=== PATIENT | male | born 1955 | race Caucasian/White ===

== ENCOUNTER 2017-04-12 19:18 | Emergency (ER) | payer OTHER, MEDICARE ==
[~2017-04-12] VITALS: Ht 167.6 cm; Wt 74.0 kg
[2017-04-12 19:22] VITALS: Ht 167.6 cm; Wt 74.0 kg
[2017-04-12] MEDS ORDERED: CLOT30CR24 TOP (21:19)
[2017-04-12] MEDS ORDERED: FLUC150T17 PO (21:19)
[2017-04-12] MEDS ORDERED: METHYLPREDNISOLONE 125 MG INJ IM ONE (21:30)
--- NOTE | 2017-04-12 21:40 | ERD ---
ER Documentation Chief Complaint Chief Complaint scaterred body rashes x 1 month HPI 11-year-old male that presents to the ER for a rash that started 2 months ago. Rash is intermittent. Patient tried antibiotics and a steroid pack however it did not work. Rash is very itchy located on his chest below his breasts and around his neck and chest. Patient states that rash is very itchy, he has been taking Benadryl, however it is still itchy. She denies any pain he does not have any fevers or chills. No one else has this rash at home. He has not traveled anywhere. He has not seen a real estate broker associate. ROS 12 point review of systems was done, all negative except per HPI. Medications Home Meds Active Scripts Clotrimazole* (Clotrimazole* AF) 1% - 30 Gm Cream.gm., 1 APPLIC TOP BID for 7 Days, TUB Prov:CJ BLAKE 04/12/17 Fluconazole* (Diflucan*) 150 Mg Tablet, 150 MG PO ONCE, #1 TAB Prov:CJ BLAKE 04/12/17 Allergies Allergies: Coded Allergies: cephalexin (Verified Allergy, Unknown, 08/16/14) PMhx/Soc Medical and Surgical Hx: pt denies Surgical Hx Hx Miscellaneous Medical Probl: Yes (cholesterol) Hx Alcohol Use: Yes (SOMETIMES) Hx Substance Use: No Hx Tobacco Use: Yes Smoking Status: Current every day smoker Physical Exam Vitals Vital Signs Date Time Temp Pulse Resp B/P Pulse Ox O2 Delivery O2 Flow Rate FiO2 04/12/17 19:22 97.9 78 20 118/66 100 Physical Exam GENERAL: The patient is well developed and appropriate for usual state of health , in no apparent distress. HEENT: Atraumatic.. CHEST: Clear to auscultation bilaterally. There are no rales, wheezes or rhonchi. HEART: Regular rate and rhythm. No murmurs, clicks, rubs or gallops. NEURO: Alert and oriented. SKIN: beefy red rash below breasts and around neck and chest Results 24 hrs Current Medications Medications (Trade) Dose Ordered Sig/Laureano Route PRN Reason Start Time Stop Time Status Last Admin Dose Admin Methylprednisolone Sodium Succinate (Solu-Medrol) 80 mg ONCE ONCE IM 04/12/17 21:30 10/26/17 21:31 DC 04/12/17 21:15 Procedures/MDM Differential Diagnosis: dermatitis, allergic urticaria, viral exanthem, insect bite, fungal infectio ,viral exanthem, hand foot mouth disease, , impetigo, cellulitis, abscess, myrna valarie syndrome, meningocemia, necrotizing fasciitis, myositis. Clinical suspcicion for necrotizing fasciitis or myositis is low. There are no skip leasions or pain away from the site of the rash. Clinical suspicion for myrna valarie syndrome is low. There is not history new medication use or mucosal involvement. She likely has a fungal infection and he will be treated with fluconazole and with clotrimazole. Patient was given a shot of Solu-Medrol in the ER without any complications for itching. I advised patient to follow-up with a real estate broker associate if rash does not go away as he has already tried steroids antibiotics and will not try antifungals. She is afebrile and well-appearing. He can follow-up with his primary care doctor within 1-2 days or return to ER sooner if symptoms worsen. My medical decision making shared with the patient he understands and agrees with plan. Departure Diagnosis: Primary Impression: Rash Condition: Stable Patient Instructions: Self-Care for Skin Rashes Referrals: JOAQUÍN ENCISO MD (PCP) Additional Instructions: Call your primary care doctor TOMORROW for an appointment during the next 1-2 days.See the doctor sooner or return here if your condition worsens before your appointment time. CJ BLAKE Apr 12, 2017 21:40
== END 2017-04-12 21:27 | disposition home or self-care (01) ==
LOC: FTE 19:18
DX: R21 Rash and other nonspecific skin eruption (principal); F17.210 Nicotine dependence, cigarettes, uncomplicated
CPT/HCPCS: 96372; J2930; Z7502